=== PATIENT | female | born 1940 | race Two or more races ===

== ENCOUNTER 2020-10-20 16:34 | Emergency (ER) | payer OTHER ==
[~2020-10-20] VITALS: Ht 165.1 cm; Wt 77.1 kg
[~2020-10-20 16:34] MED LIST: ALDACTONE25 MG PO; ALTACE10 MG PO; CATAPRES0.1 MG PO; NABUMETONE500 MG PO; PERCOCET 5/3251 TAB PO; SYNTHROID125 MCG PO
[2020-10-20] MEDS ORDERED: KAPVAY0.1 MG (17:11)
[2020-10-20] MEDS ORDERED: MICARDIS80 MG (17:11)
[2020-10-20] MEDS ORDERED: AMLODIPINE-OLM1 EACH (17:12)
[2020-10-20] MEDS ORDERED: PAIN RELIEVER500 MG (17:13)
[2020-10-20] MEDS ORDERED: LYRICA20 MG/1 ML (17:13)
[2020-10-20] MEDS ORDERED: OXCARBAZEPINE300 MG (17:13)
[2020-10-20] MEDS ORDERED: TIVORBEX20 MG (17:14)
== END 2020-10-20 21:43 | disposition home or self-care (01) ==
LOC: ER 16:34
DX: G50.0 Trigeminal neuralgia (principal); R51.9 Headache, unspecified

== ENCOUNTER 2021-08-13 09:49 | Outpatient (CLI) | payer OTHER ==
[~2021-08-13 09:49] MED LIST changes: +AMLODIPINE-OLM1 EACH; +KAPVAY0.1 MG; +LYRICA20 MG/1 ML; +MICARDIS80 MG; +OXCARBAZEPINE300 MG; +PAIN RELIEVER500 MG; +TIVORBEX20 MG
== END 2021-08-13 09:50 | disposition home or self-care (01) ==
LOC: MRI 09:49
PROVIDERS: ATTEND Orthopaedic Surgery
DX: M25.561 Pain in right knee (principal); M25.562 Pain in left knee; S83.201A Bucket-handle tear of unspecified meniscus, current injury, left knee, initial encounter
CPT/HCPCS: 73718

== ENCOUNTER 2021-12-20 12:54 | Emergency (ER) | payer OTHER ==
[~2021-12-20] VITALS: Ht 165.1 cm; Wt 86.2 kg
== END 2021-12-20 15:03 | disposition home or self-care (01) ==
LOC: ER 12:54
DX: S00.511A Abrasion of lip, initial encounter (principal); X58.XXXA Exposure to other specified factors, initial encounter; Y93.9 Activity, unspecified; Y92.9 Unspecified place or not applicable; Y99.9 Unspecified external cause status; I10 Essential (primary) hypertension